=== PATIENT | male | born 2005 | race Two or more races ===

== ENCOUNTER 2024-06-19 17:42 | Emergency (ER) | payer MEDICAID, SELFPAY ==
[2024-06-19 17:52] VITALS: BP 126/86; PULSE 88; RESP 18; TEMP 37.3; O2SAT 100
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
== END 2024-06-19 18:20 ==
LOC: SERX 18:31
PROVIDERS: Emergency Provider Family Medicine
DX: S01.511A Laceration without foreign body of lip, initial encounter (principal); Y04.0XXA Assault by unarmed brawl or fight, initial encounter; Z65.3 Problems related to other legal circumstances
CPT/HCPCS: 99281

== ENCOUNTER 2025-01-14 12:46 | Emergency (ER) | payer MEDICAID, SELFPAY ==
[2025-01-14 12:48] VITALS: BP 154/86; PULSE 103; RESP 20; TEMP 36.9; O2SAT 98
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
[2025-01-14 12:53] VITALS: BMI 24.4
== END 2025-01-14 13:05 ==
LOC: SERX 13:08
PROVIDERS: Emergency Provider Emergency Medicine
DX: Z02.89 Encounter for other administrative examinations (principal); S31.134A Puncture wound of abdominal wall without foreign body, left lower quadrant without penetration into peritoneal cavity, initial encounter; S21.132A Puncture wound without foreign body of left front wall of thorax without penetration into thoracic cavity, initial encounter; Y35.833A Legal intervention involving a conducted energy device, suspect injured, initial encounter
CPT/HCPCS: 99281